=== PATIENT | male | born 1950 | race Caucasian/White ===

== ENCOUNTER 2020-06-08 19:24 | Emergency (ER) | payer OTHER ==
[~2020-06-08] VITALS: Ht 175.3 cm; Wt 79.4 kg
[~2020-06-08 19:24] MED LIST: ASPI81CH PO; ATOR40TA PO; BENZ100A PO; CLOP75 PO; DULO30 PO; FOLI1 PO; HYDR1TAB94 PO; LISI20 PO; LISI5 PO; ONDA4ODT SL; SILD25T PO; VITAMIN B-121000 MCG PO
[2020-06-08 19:55] LABS: BASOPHILS ABSOLUTE AUTO 0.08 K/mm3 (0.00-0.23); BASOPHILS PERCENT AUTO 1 % (0-2); EOSINOPHILS ABSOLUTE AUTO 0.19 K/mm3 (0.00-0.68); EOSINOPHILS PERCENT AUTO 2 % (0-6); Hemoglobin 15.7 g/dL (13.5-17.5); IMMATURE GRAN ABSOLUTE AUTO 0.18 K/mm3 (0.00-0.10); IMMATURE GRAN PERCENT AUTO 2 % (0-1); LYMPHOCYTES PERCENT AUTO 27 % (21-46); MONOCYTES ABSOLUTE AUTO 0.65 K/mm3 (0.16-1.47); MONOCYTES PERCENT AUTO 8 % (4-13); Mean Corpuscular HGB 27.8 pg (26.0-34.0); Mean Corpuscular HGB Conc 33.4 g/dL (31.5-36.5); Mean Corpuscular Volume 83 fL (80-100); Mean Platelet Volume 11.3 fL (9.1-12.4); NEUTROPHILS ABSOLUTE AUTO 5.26 K/mm3 (1.96-9.15); NEUTROPHILS PERCENT AUTO 61 % (41-73); Platelet Count 151 K/mm3 (150-400); RDW Coefficient Variation 13.1 % (11.7-14.2); RDW Standard Deviation 39.3 fL (35.1-46.3); Red Blood Cell Count 5.65 M/mm3 (4.30-5.90); White Blood Cell Count 8.66 K/mm3 (4.00-11.30)
[2020-06-08 20:23] LABS: Alanine Aminotransfer (ALT/SGP 27 U/L (12-78); Albumin, Blood 3.8 g/dL (3.4-5.0); Albumin/Globulin Ratio 1.1 (0.8-1.8); Alk Phos 79 U/L (50-136); Anion Gap 5 mmol/L (6-16); Aspartate Aminotrans (AST/SGOT 22 U/L (12-37); Bilirubin, Total 0.5 mg/dL (0.1-1.0); Blood Urea Nitrogen 12 mg/dL (8-24); Bun/Creatinine Ratio 10.6 (12.0-20.0); CO2, Blood 27 mmol/L (21-32); Calcium, Blood 8.8 mg/dL (8.5-10.1); Chloride, Blood 112 mmol/L (98-108); Creatinine, Blood 1.13 mg/dL (0.60-1.20); Globulin, Blood 3.6 g/dL (2.2-4.0); Glomerular Filtration Rate >60 (60-); Glucose, Blood 106 mg/dL (70-99); Potassium, Blood 3.8 mmol/L (3.5-5.5); Sodium, Blood 144 mmol/L (136-145); Total Protein, Blood 7.4 g/dL (6.4-8.2)
== END 2020-06-09 01:16 | disposition home or self-care (01) ==
LOC: ER 19:24
PROVIDERS: Physician Assistant
DX: M79.641 Pain in right hand (principal); R20.0 Anesthesia of skin; I10 Essential (primary) hypertension; Z88.5 Allergy status to narcotic agent; Z79.82 Long term (current) use of aspirin; Z79.899 Other long term (current) drug therapy
CPT/HCPCS: 36415; 70450; 80053; 85025; 99284-25

== ENCOUNTER 2024-06-07 05:25 | Emergency (ER) | payer OTHER ==
[~2024-06-07] VITALS: Ht 175.3 cm; Wt 83.0 kg
[~2024-06-07 05:25] MED LIST changes: +ALBU90OI INH; +ATOR20 PO; +AZIT500 PO; +CEFP200 PO
[2024-06-07 05:29] VITALS: BP 149/87
[2024-06-07] MEDS ORDERED: Ketorolac Tromethamine 30mg Vial IM ONE (06:15)
[2024-06-07] MEDS ORDERED: Methocarbamol 500 MG Tab PO ONE (06:15)
[2024-06-07] MEDS ORDERED: Methyl Salicylate/Menth/Camph 57 GM TUBE TOP ONE (06:15)
[2024-06-07] MEDS ORDERED: Robaxin750 MG PO (07:00)
== END 2024-06-07 07:07 | disposition home or self-care (01) ==
LOC: ER 05:25
DX: M54.41 Lumbago with sciatica, right side (principal); I10 Essential (primary) hypertension; I25.10 Atherosclerotic heart disease of native coronary artery without angina pectoris; Z95.1 Presence of aortocoronary bypass graft; Z88.5 Allergy status to narcotic agent; Z79.899 Other long term (current) drug therapy
CPT/HCPCS: 96372; 99283-25; A9270; J1885

== ENCOUNTER 2025-02-05 21:17 | Inpatient (IN) | payer OTHER ==
[~2025-02-05] VITALS: Ht 172.7 cm; Wt 73.8 kg
[~2025-02-05 21:17] MED LIST changes: +Robaxin750 MG PO
[2025-02-05] MEDS ORDERED: NS 1,000 ML IV SCH (21:55)
[2025-02-05 22:16] LABS: BASOPHILS ABSOLUTE AUTO 0.09 K/mm3 (0.00-0.23); BASOPHILS PERCENT AUTO 1 % (0-2); EOSINOPHILS ABSOLUTE AUTO 0.31 K/mm3 (0.00-0.68); EOSINOPHILS PERCENT AUTO 3 % (0-6); Hematocrit 43.3 % (37.0-53.0); Hemoglobin 14.8 g/dL (13.5-17.5); IMMATURE GRAN ABSOLUTE AUTO 0.09 K/mm3 (0.00-0.10); IMMATURE GRAN PERCENT AUTO 1 % (0-1); LYMPHOCYTES ABSOLUTE AUTO 3.61 K/mm3 (0.84-5.20); LYMPHOCYTES PERCENT AUTO 39 % (21-46); MONOCYTES ABSOLUTE AUTO 0.78 K/mm3 (0.16-1.47); MONOCYTES PERCENT AUTO 8 % (4-13); Mean Corpuscular HGB Conc 34.2 g/dL (31.5-36.5); Mean Corpuscular Volume 82 fL (80-100); NEUTROPHILS ABSOLUTE AUTO 4.46 K/mm3 (1.96-9.15); NEUTROPHILS PERCENT AUTO 48 % (41-73); NRBC ABSOLUTE 0.00 K/mm3 (0.00-0.02); NRBC Auto 0.0 /100 WBC (0.0-0.2); Platelet Count 153 K/mm3 (150-400); RDW Coefficient Variation 12.5 % (11.7-14.2); RDW Standard Deviation 37.0 fL (35.1-46.3)
[2025-02-05 22:37] LABS: Alanine Aminotransfer (ALT/SGP 27.0 U/L (12-78); Albumin, Blood 3.5 g/dL (3.4-5.0); Albumin/Globulin Ratio 1.1 (0.8-1.8); Anion Gap 6.0 mmol/L (3-11); Aspartate Aminotrans (AST/SGOT 24.0 U/L (12-37); Bilirubin, Total 0.4 mg/dL (0.1-1.0); Blood Urea Nitrogen 14.0 mg/dL (8-24); CO2, Blood 26.0 mmol/L (21-32); Calcium, Blood 8.4 mg/dL (8.5-10.1); Chloride, Blood 106.0 mmol/L (98-108); Creatinine, Blood 1.3 mg/dL (0.60-1.20); Globulin, Blood 3.3 g/dL (2.2-4.0); Glucose, Blood 144.0 mg/dL (70-99); Magnesium, Blood 2.1 mg/dL (1.6-2.4); Potassium, Blood 3.4 mmol/L (3.5-5.5); Sodium, Blood 135.0 mmol/L (136-145); Total Protein, Blood 6.8 g/dL (6.4-8.2)
[2025-02-06] VITALS (32 sets, daily range): BP systolic 98–184; BP diastolic 55–128
[2025-02-06] MEDS ORDERED: HYDROmorphone HCl/Pf 1MG SYR IV ONE (00:35)
[2025-02-06] MEDS ORDERED: Cymbalta20 MG PO (02:08)
[2025-02-06] MEDS ORDERED: SILD50TA PO (02:08)
[2025-02-06] MEDS ORDERED: LISI20 PO (02:08)
[2025-02-06] MEDS ORDERED: Crestor40 MG PO (02:09)
[2025-02-06] MEDS ORDERED: ACET500 PO (02:09)
[2025-02-06] MEDS ORDERED: NS 1,000 ML IV SCH (03:00)
[2025-02-06 03:01] LABS: CHOL/HDL RATIO 5.0; Cholesterol 159 mg/dL (50-200); HDL Cholesterol 32 mg/dL (>39); LDL/HDL RATIO 3.0; Low Density Lipoprotein Chol 96 mg/dL (0-110); Thyroid Stimulating Hormone 4.690 uIU/mL (0.360-4.800); Triglycerides 156 mg/dL (30-160); Very Low Density Lipoprot Chol 31 mg/dL (6-32)
[2025-02-06] MEDS ORDERED: OxyCODONE 5 mg/Acetamin 325 mg TABLET PO PRN (03:10)
--- NOTE | 2025-02-06 03:47 | NUR ---
SHIFT SUMMARY/ TRANSFER SUMMARY PATIENT IS ALERT AND ORIENTED. PATIENT HAS BEEN ADMITTED FOR BRADYCARDIA/CHEST PAIN. PATIENT HAS HAD NO CHEST PAIN SINCE ADMIT TO 363. PATIENT HAS BEEN BRADYCARDIC IN THE 35-40 BPM. NOTIFIED. EKG PERFORMED. DR NOTIFIED. DR ORDERED TRANSFER TO ICU 5. ICU NURSE GIVEN REPORT AND TRANSFERRED TO IC5.
[2025-02-06 04:40] LABS: BASOPHILS ABSOLUTE AUTO 0.04 K/mm3 (0.00-0.23); BASOPHILS PERCENT AUTO 1 % (0-2); EOSINOPHILS ABSOLUTE AUTO 0.13 K/mm3 (0.00-0.68); EOSINOPHILS PERCENT AUTO 2 % (0-6); Hematocrit 39.9 % (37.0-53.0); Hemoglobin 13.6 g/dL (13.5-17.5); IMMATURE GRAN ABSOLUTE AUTO 0.05 K/mm3 (0.00-0.10); IMMATURE GRAN PERCENT AUTO 1 % (0-1); LYMPHOCYTES ABSOLUTE AUTO 1.57 K/mm3 (0.84-5.20); LYMPHOCYTES PERCENT AUTO 25 % (21-46); MONOCYTES ABSOLUTE AUTO 0.43 K/mm3 (0.16-1.47); MONOCYTES PERCENT AUTO 7 % (4-13); Mean Corpuscular HGB Conc 34.1 g/dL (31.5-36.5); Mean Corpuscular Volume 80 fL (80-100); NEUTROPHILS ABSOLUTE AUTO 4.05 K/mm3 (1.96-9.15); NEUTROPHILS PERCENT AUTO 65 % (41-73); NRBC ABSOLUTE 0.00 K/mm3 (0.00-0.02); NRBC Auto 0.0 /100 WBC (0.0-0.2); Platelet Count 107 K/mm3 (150-400); RDW Coefficient Variation 12.7 % (11.7-14.2); RDW Standard Deviation 35.9 fL (35.1-46.3)
[2025-02-06 04:55] LABS: Prothrombin Time Results 11.7 Sec (9.7-11.5)
[2025-02-06 06:06] LABS: Alanine Aminotransfer (ALT/SGP 23.0 U/L (12-78); Albumin, Blood 3.2 g/dL (3.4-5.0); Albumin/Globulin Ratio 1.1 (0.8-1.8); Anion Gap 6.0 mmol/L (3-11); Aspartate Aminotrans (AST/SGOT 21.0 U/L (12-37); Bilirubin, Total 0.5 mg/dL (0.1-1.0); Blood Urea Nitrogen 13.0 mg/dL (8-24); CO2, Blood 26.0 mmol/L (21-32); Calcium, Blood 8.1 mg/dL (8.5-10.1); Chloride, Blood 109.0 mmol/L (98-108); Creatinine, Blood 1.15 mg/dL (0.60-1.20); Globulin, Blood 3.0 g/dL (2.2-4.0); Glucose, Blood 97.0 mg/dL (70-99); Potassium, Blood 4.2 mmol/L (3.5-5.5); Sodium, Blood 137.0 mmol/L (136-145); Total Protein, Blood 6.2 g/dL (6.4-8.2)
[2025-02-06 06:51] LABS: U Amphetamine Screen Not Detected; U Barbituate Screen Not Detected; U Benzodiazapine Screen Not Detected; U Buprenorphine Screen Not Detected; U Cannabinoids Screen Not Detected; U Cocaine Screen Not Detected; U Methadone Screen Not Detected; U Methamphetamine Screen Not Detected; U Opiates Screen DETECTED; U Oxycodone Screen Not Detected; U Phencyclidine Screen Not Detected
[2025-02-06] MEDS ORDERED: DULoxetine HCL 20 MG Cap DR PO SCH (09:00)
[2025-02-06] MEDS ORDERED: Enoxaparin 40 MG/0.4 ML SYR SC SCH (09:00)
--- NOTE | 2025-02-06 11:50 | NUR ---
REASSESSMENT PT HAS BEEN RESTING IN BED THROUGHOUT THE MORNING. HE CONTINUES TO HAVE A HR IN THE 30-50S. GOES BETWEEN SINUS AND JUNCTIONAL. DENIES DIZZINESS OR CHEST PAIN, BUT PT ALSO HASN'T SAT UP OR BEEN OUT OF BED. LUNGS ARE CLEAR, RA WITH SPO2 100%. NPO FOR PACER PLACEMENT THIS AFTERNOON. VOIDING USING THE URINAL. MED REC UPDATED THIS MORNING WITH THE PATIENT.
[2025-02-06] MEDS ORDERED: CeFAZolin Sodium 1000 mg Vial ONE (14:17)
[2025-02-06] MEDS ORDERED: NS 1,000 ML IV ONE ×2 (14:18→14:41)
[2025-02-06] MEDS ORDERED: Heparin Sodium 1000 Units/ML 10ML MDV ONE (14:18)
--- NOTE | 2025-02-06 14:30 | NUR ---
PT TO [facility] FOR PACER.
[2025-02-06] MEDS ORDERED: CeFAZolin Sodium 2,000 MG VIAL ONE (14:40)
[2025-02-06] MEDS ORDERED: NS 100 ML IV ONE (14:41)
[2025-02-06] MEDS ORDERED: Midazolam HCl 1MG / ML 2ML Vial ONE (14:41)
[2025-02-06] MEDS ORDERED: FentaNYL Citrate 50 MCG/ML 2 ML Injection ONE (14:41)
--- NOTE | 2025-02-06 16:43 | NUR ---
PT BACK FROM [facility] AFTER PACER PLACEMENT. DRESSING TO L SHOULDER IS C/D/I. ICE PACK PLACED ON SITE. PT IS ALERT AND ORIENTED, DENIES PAIN.
--- NOTE | 2025-02-06 17:08 | NUR ---
SHIFT SUMMARY PT GOT HIS PACER PLACED THIS AFTERNOON. HE HAS BEEN AV PACED WITH RATE IN THE LOW 60S SINCE RETURNING. HIS SKIN COLOR IS MORE PINK AFTER RETURNING FROM [facility]. HE REMAINS ALERT AND ORIENTED, JOKING FREQUENTLY WITH STAFF. LUNGS ARE CLEAR, RA WITH SPO2 100%. EATING HIS DINNER CURRENTLY. USING URINAL TO VOID. ACTIVITY RESTRICTIONS FOR HIS L ARM REVIEWED WITH PT.
[2025-02-06] MEDS ORDERED: Polyethylene Glycol 3350 17 gm PO SCH (21:00)
[2025-02-06] MEDS ORDERED: CeFAZolin Sodium 2,000 MG in NS 100 ML IV SCH (23:00)
[2025-02-07] VITALS (13 sets, daily range): BP systolic 124–178; BP diastolic 73–98
--- NOTE | 2025-02-07 05:58 | NUR ---
SHIFT SUMMARY PATIENT SLEPT THROUGH OUT SHIFT. A&O X4, HR IN THE 60'S AND SBP 140-150'S. PATIENT HAS LITTLE TO NO PAIN IN INCISION SITE. PATIENT USES BEDSIDE URINAL INDEPENDENTLY AND CAN REPOSITION HIMSELF IN BED. ON RA. PERIPHERAL IV'S IN RIGHT FOREARM AND LEFT FOREARM. INCSION ON LEFT UPPER CHEST LITTLE TRACE OF CLEAR LIQUID WITH A LITTLE BLOODY TINGE ON GUAZE WITH TEGADERM OVER IT ALL INTACT. CALL LIGHT WITHIN REACH.
[2025-02-07] MEDS ORDERED: Cymbalta20 MG PO (12:46)
[2025-02-07] MEDS ORDERED: ROSUVASTATIN CA10 MG PO (12:47)
--- NOTE | 2025-02-07 13:48 | NUR ---
DISCHARGE AND SHIFT SUMMARY NEURO: ALERT AND ORIENTED X4. CARDIAC: S/P PACEMAKER PLACEMENT, AV PACED. HR 60-70S, SBP 150-160S. PULM: LUNGS CLEAR TO AUSCULATION GI: ABDOMEN IS SOFT/NON TENDER WITH NORMOACTIVE BOWEL TONES. : YELLOW URINE, INDEPENDENT WITH URINAL SKIN: S/P PACEMAKER SITE OCCLUSIVE GAUZE/TEGADERM VISIBLE DRAINAGE NIGHT NURSE STATES UNCHANGED FROM LAST NIGHT. AREA OF DRAINAGE OUTLINED. OTHERWISE SKIN IS INTACT. REVIEWED DISCHARGE INSTRUCTIONS WITH PATIENT AND HE EXPRESSED UNDERSTANDING. DISCUSSED IMPORTANCE OF FOLLOWING ACTIVITY INSTRUCTIONS. NO CHANGE IN CURRENT MEDICATIONS, PT [facility] REVIEWED PRINTED POST PACEMAKERT DISCHARGE INSTRUCTIONS AND BOOKLET PROVIDED BY THE [facility]. PT EXPRESSED UNDERSTANDING. VERY ENGAGED AND ASKED MANY QUESTIONS. TRANSPORTED BY PRIVATE VEHICLE OPERATED BY HIS NIECE.
== END 2025-02-07 14:32 | disposition home or self-care (01) | DRG 243 ==
LOC: ER 21:17 → ICUE 21:18 → MEDS 21:18 → ICUE 02-06 02:16 → MEDS 02-06 02:28 → ICUE 02-06 03:45
PROVIDERS: Student in an Organized Health Care Education/Training Program; ADMIT Internal Medicine
PROC: 0JH606Z Insertion of Pacemaker, Dual Chamber into Chest Subcutaneous Tissue and Fascia, Open Approach (ICD-10-PCS; principal; 2025-02-06)
PROC: 02H63JZ Insertion of Pacemaker Lead into Right Atrium, Percutaneous Approach (ICD-10-PCS; 2025-02-06)
PROC: 02HK3JZ Insertion of Pacemaker Lead into Right Ventricle, Percutaneous Approach (ICD-10-PCS; 2025-02-06)
DX: I44.1 Atrioventricular block, second degree (principal); N17.9 Acute kidney failure, unspecified; I25.2 Old myocardial infarction; F41.9 Anxiety disorder, unspecified; F32.A Depression, unspecified; F43.10 Post-traumatic stress disorder, unspecified; I10 Essential (primary) hypertension; I44.7 Left bundle-branch block, unspecified; E87.6 Hypokalemia; E78.5 Hyperlipidemia, unspecified; K59.00 Constipation, unspecified; M79.641 Pain in right hand; I25.10 Atherosclerotic heart disease of native coronary artery without angina pectoris; J45.909 Unspecified asthma, uncomplicated; Z79.82 Long term (current) use of aspirin; Z79.899 Other long term (current) drug therapy; Z86.19 Personal history of other infectious and parasitic diseases; Z98.890 Other specified postprocedural states; Z95.1 Presence of aortocoronary bypass graft; Z88.5 Allergy status to narcotic agent; Z95.5 Presence of coronary angioplasty implant and graft
CPT/HCPCS: 33208; 36415; 71045; 71046; 71275; 74174; 80053; 80061; 83036; 83690; 83735; 83880; 84443; 84484; 85025; 85027; 85610; 93005; 93010; 93306; 93971; 96375; 96375-59; 99152; 99153; 99285-25; A9270; C1785; C1894; C1898; G0378; J0690; J1171; J1644; J1650; J2250; J3010; J7030; J7040; Q9967

== ENCOUNTER 2025-03-10 11:42 | Emergency (ER) | payer OTHER ==
[~2025-03-10] VITALS: Ht 175.3 cm; Wt 79.4 kg
[~2025-03-10 11:42] MED LIST changes: +ACET500 PO; +Crestor40 MG PO; +Cymbalta20 MG PO; +ROSUVASTATIN CA10 MG PO; +SILD50TA PO
[2025-03-10 12:14] LABS: BASOPHILS ABSOLUTE AUTO 0.05 K/mm3 (0.00-0.23); BASOPHILS PERCENT AUTO 1 % (0-2); EOSINOPHILS ABSOLUTE AUTO 0.15 K/mm3 (0.00-0.68); EOSINOPHILS PERCENT AUTO 3 % (0-6); Hematocrit 44.2 % (37.0-53.0); Hemoglobin 15.0 g/dL (13.5-17.5); IMMATURE GRAN ABSOLUTE AUTO 0.05 K/mm3 (0.00-0.10); IMMATURE GRAN PERCENT AUTO 1 % (0-1); LYMPHOCYTES ABSOLUTE AUTO 1.89 K/mm3 (0.84-5.20); LYMPHOCYTES PERCENT AUTO 34 % (21-46); MONOCYTES ABSOLUTE AUTO 0.45 K/mm3 (0.16-1.47); MONOCYTES PERCENT AUTO 8 % (4-13); Mean Corpuscular HGB Conc 33.9 g/dL (31.5-36.5); Mean Corpuscular Volume 81 fL (80-100); NEUTROPHILS ABSOLUTE AUTO 2.99 K/mm3 (1.96-9.15); NEUTROPHILS PERCENT AUTO 54 % (41-73); NRBC ABSOLUTE 0.00 K/mm3 (0.00-0.02); NRBC Auto 0.0 /100 WBC (0.0-0.2); Platelet Count 104 K/mm3 (150-400); RDW Coefficient Variation 13.1 % (11.7-14.2); RDW Standard Deviation 37.9 fL (35.1-46.3)
[2025-03-10 12:27] LABS: Alanine Aminotransfer (ALT/SGP 22.0 U/L (12-78); Albumin, Blood 3.6 g/dL (3.4-5.0); Albumin/Globulin Ratio 1.0 (0.8-1.8); Anion Gap 6.0 mmol/L (3-11); Aspartate Aminotrans (AST/SGOT 23.0 U/L (12-37); Bilirubin, Total 0.6 mg/dL (0.1-1.0); Blood Urea Nitrogen 17.0 mg/dL (8-24); CO2, Blood 28.0 mmol/L (21-32); Calcium, Blood 8.2 mg/dL (8.5-10.1); Chloride, Blood 106.0 mmol/L (98-108); Creatinine, Blood 1.32 mg/dL (0.60-1.20); Globulin, Blood 3.6 g/dL (2.2-4.0); Glucose, Blood 101.0 mg/dL (70-99); Potassium, Blood 3.8 mmol/L (3.5-5.5); Sodium, Blood 136.0 mmol/L (136-145); Total Protein, Blood 7.2 g/dL (6.4-8.2)
[2025-03-10 14:30] VITALS: BP 114/68
== END 2025-03-10 14:38 | disposition home or self-care (01) ==
LOC: ER 11:42
PROVIDERS: Emergency Medicine
DX: R07.9 Chest pain, unspecified (principal); F32.A Depression, unspecified; F41.9 Anxiety disorder, unspecified; I10 Essential (primary) hypertension; I25.2 Old myocardial infarction; Z95.0 Presence of cardiac pacemaker; Z88.5 Allergy status to narcotic agent; Z79.899 Other long term (current) drug therapy
CPT/HCPCS: 71046; 80053; 83735; 84484; 85025; 93005; 93010; 99285-25; A9270

== ENCOUNTER 2025-05-14 17:38 | Emergency (ER) | payer OTHER ==
[~2025-05-14] VITALS: Ht 167.6 cm; Wt 75.3 kg
[2025-05-14] MEDS ORDERED: HYDROcodone 5-APAP 325 TAB PO ONE (18:10)
[2025-05-14 19:16] VITALS: BP 116/65
== END 2025-05-14 19:14 | disposition home or self-care (01) ==
LOC: ER 17:38
DX: G56.01 Carpal tunnel syndrome, right upper limb (principal); I12.9 Hypertensive chronic kidney disease with stage 1 through stage 4 chronic kidney disease, or unspecified chronic kidney disease; N18.30 Chronic kidney disease, stage 3 unspecified; F43.10 Post-traumatic stress disorder, unspecified; Z79.899 Other long term (current) drug therapy; Z88.5 Allergy status to narcotic agent
CPT/HCPCS: 99283-25; A9270